=== PATIENT | female | born 1965 | race American Indian/Alaskan Native ===

== ENCOUNTER 2021-07-13 18:07 | Emergency (ER) | payer SELFPAY ==
[2021-07-13 20:55] LABS: Basophils # (Auto) 0.1 K/mm3 (0.0-0.1); Basophils % (Auto) 0.9 % (0.0-1.8); Eosinophils % (Auto) 0.1 % (0.0-4.3); Lymphocytes # (Auto) 2.2 K/mm3 (1.2-5.4); Lymphocytes % (Auto) 23.9 % (13.4-35.0); Mean Corpuscular HGB Conc 31 % (30-34); Mean Corpuscular Volume 77 fl (79-97); Monocytes # (Auto) 1.3 K/mm3 (0.0-0.8); Monocytes % (Auto) 14.8 % (0.0-7.3); Red Blood Count 5.72 M/mm3 (3.65-5.03); Red Cell Distribution Width 14.2 % (13.2-15.2)
[2021-07-13 20:59] LABS: Hematocrit 44.2 % (30.3-42.9); Hemoglobin 13.7 gm/dl (10.1-14.3)
[2021-07-13 21:00] LABS: Platelet Count 238 K/mm3 (140-440)
[2021-07-13 21:01] LABS: Bilirubin,Urine NEG (Negative); Blood,Urine NEG (Negative); Color,Urine Amber (Yellow); Mucus,Urine FEW /HPF; Protein,Urine >500 mg/dL (Negative); Urobilinogen,Urine < 2.0 mg/dL (<2.0)
[2021-07-13 21:16] LABS: Albumin 3.7 g/dL (3.9-5); Calcium 9.4 mg/dL (8.4-10.2)
[2021-07-14] MEDS ORDERED: SODIUM CHLORIDE 0.9% 1000 ML 1,000 ML IV ONE (01:01)
--- NOTE | 2021-07-14 01:55 | XRay Report ---
CHEST 2 VIEWS INDICATION / CLINICAL INFORMATION: cough and sob. COMPARISON: None available. FINDINGS: SUPPORT DEVICES: None. HEART / MEDIASTINUM: No significant abnormality. LUNGS / PLEURA: There is pulmonary vascular indistinctness and perihilar opacities. No focal consolid ation. No pneumothorax. ADDITIONAL FINDINGS: No significant additional findings. IMPRESSION: 1. Moderate pulmonary edema Signer Name: Van Beckham DO Signed: 07/14/2021 1:51 AM Workstation Name: [id number]
[2021-07-14] MEDS ORDERED: FUROSEMIDE 40 MG/4 ML INJ IV ONE (02:38)
[2021-07-14] MEDS ORDERED: cloNIDine 0.2 MG TAB PO STA (05:56)
[2021-07-14 06:16] VITALS: BP 167/89
--- NOTE | 2021-07-14 06:22 | Emergency Department Report ---
ED General Adult HPI - General Chief complaint: Abdominal Pain Stated complaint: COVID LIKE SYMPTOMS Time Seen by Provider: 07/14/21 00:32 Source: patient Mode of arrival: Ambulatory Limitations: No Limitations - History of Present Illness Initial comments: 55-year-old F [place] female with history of COPD presents emerge department complaining of having continued cough congestion and coryza secondary to Covid as you diagnosed Covid about 8 days ago and having some lingering shortness of breath weakness and fatigue which she reports no hemoptysis no hematemesis no . No diarrhea. No nausea or vomiting. Although she is having some abdominal ache s to the upper abdomen associated with the symptoms. She reports no hematemesis no hematochezia -: Gradual Quality: dull Consistency: constant Improves with: none Worsens with: none Associated Symptoms: cough, headaches, malaise. denies: confusion, chest pain, diaphoresis, loss of appetite, nausea/vomiting, syncope - Related Data Previous Rx's Medication Instructions Recorded Last Taken Type Albuterol Mdi (or & Nicu Only) 1 puff IH QID PRN #8.5 gram 07/14/21 Unknown Rx [ProAir HFA Inhaler] Benzonatate [Tessalon Perles] 100 mg PO Q8HR #20 capsule 07/14/21 Unknown Rx Furosemide [Lasix] 40 mg PO DAILY #7 tablet 07/14/21 Unknown Rx Potassium Chloride 20 meq PO DAILY #20 tab.er.prt 07/14/21 Unknown Rx Allergies Allergy/AdvReac Type Severity Reaction Status Date / Time No Known Allergies Allergy Unverified 07/13/21 20:31 ED Review of Systems ROS: Stated complaint: COVID LIKE SYMPTOMS Other details as noted in HPI Comment: All other systems reviewed and negative ED Past Medical Hx - Past Medical History Previous Medical History?: No - Surgical History Past Surgical History?: No - Medications Home Medications: Home Medications Medication Instructions Recorded Confirmed Last Taken Type Albuterol Mdi (or & Nicu Only) 1 puff IH QID PRN #8.5 gram 07/14/21 Unknown Rx [ProAir HFA Inhaler] Benzonatate [Tessalon Perles] 100 mg PO Q8HR #20 capsule 07/14/21 Unknown Rx Furosemide [Lasix] 40 mg PO DAILY #7 tablet 07/14/21 Unknown Rx Potassium Chloride 20 meq PO DAILY #20 tab.er.prt 07/14/21 Unknown Rx ED Physical Exam - General Limitations: No Limitations General appearance: alert, in no apparent distress - Head Head exam: Present: atraumatic, normocephalic - Eye Eye exam: Present: normal appearance, PERRL, EOMI Pupils: Present: normal accommodation - ENT ENT exam: Present: normal exam, normal orophraynx, mucous membranes moist - Neck Neck exam: Present: normal inspection - Respiratory Respiratory exam: Present: normal lung sounds bilaterally. Absent: respiratory distress - Cardiovascular Cardiovascular Exam: Present: regular rate, normal rhythm. Absent: systolic murmur, diastolic murmur, rubs, gallop - GI/Abdominal GI/Abdominal exam: Present: soft, normal bowel sounds - Extremities Exam Extremities exam: Present: normal inspection, normal capillary refill - Back Exam Back exam: Present: normal inspection. Absent: CVA tenderness (R), CVA tenderness (L) - Neurological Exam Neurological exam: Present: alert, oriented X3, CN II-XII intact, normal gait - Psychiatric Psychiatric exam: Present: normal affect, normal mood - Skin Skin exam: Present: warm, dry, intact, normal color. Absent: rash ED Course Vital Signs 07/13/21 07/14/21 07/14/21 20:28 00:30 05:56 Temperature 98.2 F 98 F Pulse Rate 113 H 137 H 109 H Respiratory 16 22 18 Rate Blood Pressure 173/135 Blood Pressure 218/118 [Right] O2 Sat by Pulse 95 90 94 Oximetry 07/14/21 06:12 Temperature Pulse Rate 104 H Respiratory Rate Blood Pressure 167/89 Blood Pressure [Right] O2 Sat by Pulse Oximetry ED Medical Decision Making - Lab Data Result diagrams: 07/13/21 20:40 07/13/21 20:40 - Radiology Data Radiology results: report reviewed [facility] [address] [place] [address] XRay Report Signed Patient: OMAR JAIMES MR#: [id number] 2 : 1965 Acct:[id number] Age/Sex: 55 / F ADM Date: 07/13/21 Loc: ED Attending Dr: Ordering Physician: GEO HARDWICK Date of Service: 07/14/21 Procedure(s): XR chest routine 2V Accession Number(s): [id number] cc: GEO HARDWICK Fluoro Time In Minutes: CHEST 2 VIEWS INDICATION / CLINICAL INFORMATION: cough and sob. COMPARISON: None available. FINDINGS: SUPPORT DEVICES: None. HEART / MEDIASTINUM: No significant abnormality. LUNGS / PLEURA: There is pulmonary vascular indistinctness and perihilar opacities. No focal consolidation. No pneumothorax. ADDITIONAL FINDINGS: No significant additional findings. IMPRESSION: 1. Moderate pulmonary edema Signer Name: Van Sandra DO Signed: 07/14/2021 1:51 AM Workstation Name: [id number] Transcribed By: HUMPHREY Dictated By: VAN SANDRA DO Electronically Authenticated By: VAN SANDRA DO Signed Date/Time: 07/14/21150 DD/ 9 TD/TT: - Medical Decision Making 55-year-old female with past medical history of hypertension, Covid, CHF and diagnosed Covid over 1 week ago with residual cough congestion shortness of breath and abdominal pain. She reports no hemoptysis no fevers chills or sweats but feels that the symptoms are beginning to progress in her chest and not improving with her current home meds and [id number] treatments. Originally she thought and dehydration therefore she will start on normal saline however about 200 cc into the infusion we did receive the results of the chest x-ray with which was consistent with a CHF and the fluids were abruptly discontinued Lasix was provided. The patient did urinate and was ambulatory in the emergency department maintaining saturations of 95%. Plan will be to discharge home with close follow-up with her primary care provider and to return to emergency department should she feel her conditions worsen. She maintained stability and feels safe to be discharged home and has a hemodynamically stable Critical care attestation.: If time is entered above; I have spent that time in minutes in the direct care of this critically ill patient, excluding procedure time. ED Disposition Clinical Impression: CHF exacerbation, Post-COVID chronic cough Disposition: HOME / SELF CARE / HOMELESS Is pt being admited?: No Does the pt Need Aspirin: No Condition: Stable Instructions: Abdominal Pain (ED), Cool Mist Vaporizer, Cough, Adult, COVID-19 Frequently Asked Questions, COVID-19, COVID-19: How to Protect Yourself and Others - [facility] Prescriptions: Furosemide [Lasix] 40 mg PO DAILY #7 tablet Potassium Chloride 20 meq PO DAILY #20 tab.er.prt Albuterol Mdi (or & Nicu Only) [ProAir HFA Inhaler] 1 puff IH QID PRN #8.5 gram PRN Reason: sob Benzonatate [Tessalon Perles] 100 mg PO Q8HR #20 capsule Referrals: PRIMARY CAREMD [Primary Care Provider] - 3-5 Days [facility] [Provider Group] - 3-5 Days SISSY LLOYD MD [Staff Physician] - 3-5 Days
== END 2021-07-14 07:04 | disposition home or self-care (01) ==
LOC: ED 18:07
DX: I50.9 Heart failure, unspecified (principal); R05.9 Cough, unspecified; U09.9 Post COVID-19 condition, unspecified; R53.1 Weakness
CPT/HCPCS: 36415; 71046; 80053; 81001; 85025; 87086; 96361; 96374; 99284; J1940; J7030; Q0162